=== PATIENT | male | born 1965 | race Caucasian/White ===

== ENCOUNTER → 2017-11-25 | Outpatient (CLI) | payer OTHER ==
[~2017-11-25] MED LIST: APRESOLINE 25MG25 MG PO; APRESOLINE50 MG PO; ASPIRIN 81M81 MG/TA2 PO; ASPIRIN E.C. 8181 MG PO; CELEXA 20MG20 MG/TAB PO; CHOLESTEROL MED; COZAAR 50MG50 MG/TAB PO; COZAAR100 MG PO; CRESTOR 10MG10 MG PO; EPA/GLA1 SGL PO; IBU800 M1 PO; LIPITOR 40MG TA40 MG PO; MAALOX MAX + ANT1 ML PO; NIACIN1 TAB PO; NITROSTAT0.4 MG/TAB SL; NORVASC 10MG10 MG PO; NORVASC5 MG PO; OMEGA 31000 MG PO; OSTEO-BI-FLEX 21 TAB PO; PRINIVIL40 MG PO; VITAMIN E28000 IU PO; ZESTRIL 20MG TA20 MG PO; [UNRECOGNIZED DRUG - OTHER]; blood pressure med
== END ==
LOC: COL.RAD 13:30
DX: J38.7 Other diseases of larynx (principal); K11.7 Disturbances of salivary secretion
CPT/HCPCS: Q9967

== ENCOUNTER → 2017-12-01 | Outpatient (CLI) | payer OTHER | LOC: COL.RAD 10:30 | DX: R13.14 Dysphagia, pharyngoesophageal phase (principal) ==

== ENCOUNTER 2018-08-27 09:37 | Emergency (ER) | payer OTHER ==
[2018-08-27 10:06] LABS: BASO # 0.1 (0.0-0.2); BASO % 1.9 % (0.0-2.0); EOS # 0.4 (0.0-0.7); EOS % 4.7 % (0-4.0); GRAN # 3.8 (1.4-6.5); GRAN % 50.1 % (42.2-75.2); LYMPH # 2.1 (1.2-3.4); LYMPH % 28.6 % (20.0-51.0); MEAN CELL VOLUME 93 fl (80.0-100.0); MEAN CORPUSCULAR HGB CONC 34 g/dl (33.0-37.0); MEAN PLATELET VOLUME 11.6 fl (7.4-10.4); MONO % 13.6 % (1.7-9.3); PLATELET COUNT 259 K/mm3 (130-400); RED BLOOD COUNT 5.77 M/mm3 (4.20-5.60)
[2018-08-27 10:09] LABS: HEMATOCRIT 53.6 % (42.0-52.0); HEMOGLOBIN 18.3 g/dl (13.5-18.0); MEAN CORPUSCULAR HEMOGLOBIN 32 pg (27.0-31.0)
[2018-08-27 10:19] LABS: ALANINE AMINOTRANSFERASE 47 U/L (21-72); ALBUMIN 4.8 gm/dL (3.5-5.0); ALKALINE PHOSPHATASE 73 U/L (50-136); ANION GAP 10 mmol/L (7-16); AST,SGOT 45 U/L (15-37); BILIRUBIN,TOTAL 0.7 mg/dL (0.0-1.0); BLOOD UREA NITROGEN 21 mg/dL (9-20); CALCIUM 9.7 mg/dL (8.4-10.2); CARBON DIOXIDE 25 mmol/L (22-30); CHLORIDE 102 mmol/L (98-107); CREATININE, serum 1.07 mg/dL (0.66-1.25); GLUCOSE 84 mg/dL (74-106); POTASSIUM 3.9 mmol/L (3.4-5.0); SODIUM 137 mmol/L (137-145); TOTAL PROTEIN 8.8 gm/dL (6.4-8.2)
[2018-08-27] MEDS ORDERED: FISH OIL 1000MG1 CAP PO (10:20)
[2018-08-27] MEDS ORDERED: ASPIRIN 81M81 MG/TA2 PO (10:20)
[2018-08-27] MEDS ORDERED: BYSTOLIC10 MG PO (10:21)
[2018-08-27] MEDS ORDERED: HYGROTON 2525 MG/TAB PO (10:21)
[2018-08-27] MEDS ORDERED: NORVASC2.5 MG PO (10:22)
[2018-08-27] MEDS ORDERED: ALDACTONE 25MG25 M1 PO (10:22)
[2018-08-27 10:29] LABS: TROPONIN-I < 0.012 ng/mL (0.000-0.034)
[2018-08-27 11:27] VITALS: BP 154/110; PULSE 53; TEMP 96.7
== END 2018-08-27 11:28 | disposition home or self-care (01) ==
LOC: COL.ER 09:37
PROVIDERS: Emergency Medicine
DX: I10 Essential (primary) hypertension (principal); Z79.82 Long term (current) use of aspirin
CPT/HCPCS: J2270

== ENCOUNTER → 2020-10-11 | Outpatient (CLI) | payer SELFPAY ==
[~2020-10-11] MED LIST changes: +ALDACTONE 25MG25 M1 PO; +BYSTOLIC10 MG PO; +FISH OIL 1000MG1 CAP PO; +HYGROTON 2525 MG/TAB PO; +NORVASC2.5 MG PO
== END ==
LOC: COL.RAD 14:06
DX: M79.89 Other specified soft tissue disorders (principal)

== ENCOUNTER → 2020-10-24 | Outpatient (CLI) | payer SELFPAY ==
[~2020-10-24] VITALS: Ht 177.8 cm; Wt 82.0 kg
[2020-10-24 12:13] VITALS: BP 250/180; PULSE 57
[2020-10-24 13:08] VITALS: BP 230/130; PULSE 54
== END ==
LOC: COL.RAD 11:56
DX: M79.89 Other specified soft tissue disorders (principal)
CPT/HCPCS: 19804; 32108

== ENCOUNTER 2020-11-30 10:12 | Emergency (ER) | payer SELFPAY ==
[~2020-11-30] VITALS: Ht 175.3 cm; Wt 77.3 kg
[2020-11-30 10:19] VITALS: TEMP 97.8
[2020-11-30] MEDS ORDERED: COREG12.5 MG PO (10:27)
[2020-11-30] MEDS ORDERED: COZAAR100 MG PO (10:28)
[2020-11-30] MEDS ORDERED: HYGROTON 2525 MG/TAB (10:28)
[2020-11-30 10:41] LABS: BASO # 0.2 (0.0-0.2); EOS # 0.3 (0.0-0.7); EOS % 4.1 % (0-4.0); GRAN # 4.6 (1.4-6.5); GRAN % 57.1 % (42.2-75.2); HEMATOCRIT 50.9 % (42.0-52.0); HEMOGLOBIN 17.6 g/dl (13.5-18.0); LYMPH # 1.9 (1.2-3.4); LYMPH % 23.7 % (20.0-51.0); MEAN CELL VOLUME 92 fl (80.0-100.0); MEAN CORPUSCULAR HEMOGLOBIN 32 pg (27.0-31.0); MEAN CORPUSCULAR HGB CONC 35 g/dl (33.0-37.0); MEAN PLATELET VOLUME 11.3 fl (7.4-10.4); PLATELET COUNT 267 K/mm3 (130-400); PROTHROMBIN TIME 11.7 SECONDS (9.7-12.8); RED BLOOD COUNT 5.52 M/mm3 (4.20-5.60); REDCELL DISTRIBUTION WIDTH-CV 12.9 % (11.5-14.5)
[2020-11-30 10:56] LABS: ALANINE AMINOTRANSFERASE 26 U/L (4-49); ALBUMIN 4.7 gm/dL (3.5-5.0); ALKALINE PHOSPHATASE 79 U/L (50-136); ANION GAP 11 mmol/L (7-16); AST,SGOT 33 U/L (15-37); BLOOD UREA NITROGEN 25 mg/dL (9-20); CALCIUM 9.7 mg/dL (8.4-10.2); CARBON DIOXIDE 28 mmol/L (22-30); CHLORIDE 100 mmol/L (98-107); CREATININE, serum 1.18 (0.66-1.25); GLUCOSE 107 mg/dL (74-106); LIPASE 69 U/L (23-300); SODIUM 138 mmol/L (137-145)
[2020-11-30 11:10] LABS: TROPONIN-I < 0.012 ng/mL (0.000-0.035)
[2020-11-30 12:32] VITALS: BP 192/122; PULSE 43
== END 2020-11-30 12:32 | disposition home or self-care (01) ==
LOC: COL.ER 10:12
PROVIDERS: Nurse Practitioner Primary Care
DX: I10 Essential (primary) hypertension (principal); Z98.61 Coronary angioplasty status; Z79.899 Other long term (current) drug therapy
CPT/HCPCS: J7030

== ENCOUNTER → 2023-12-09 | Outpatient (CLI) | payer BC ==
[~2023-12-09] MED LIST changes: +COREG12.5 MG PO; +HYGROTON 2525 MG/TAB; +Iohexol 300 - 100 ML VIAL IV ONE; +NS 100 ML IV SCH
== END ==
LOC: COL.RAD 07:22
DX: R91.8 Other nonspecific abnormal finding of lung field (principal)
CPT/HCPCS: Q9967

== ENCOUNTER → 2023-12-25 | Outpatient (CLI) | payer BC ==
[~2023-12-25] MED LIST changes: +Gadoterate 20 ML VIAL IV ONE; -Iohexol 300 - 100 ML VIAL IV ONE; -NS 100 ML IV SCH
== END ==
LOC: COL.RAD 08:52
DX: C61 Malignant neoplasm of prostate (principal)
CPT/HCPCS: A9503-JZ; A9575